=== PATIENT | male | born 1985 | race Caucasian/White ===

== ENCOUNTER 2016-04-20 03:47 | Emergency (ER) | payer OTHER ==
[2016-04-20] MEDS ORDERED: NORCO, ANEXSIA 5/325MG TABLET (HYDROcodone/ACETAMINOPHEN) As Ordered ONE (05:28)
--- NOTE | 2016-04-20 05:39 | EDDOCDS ---
Nurse's Notes [facility] Name: Craig Triana Age: 30 yrs Sex: Male : 1985 Arrival Date: 04/20/2016 Time: 03:47 Bed 8 Private MD: Diagnosis: Displaced fracture of base of fourth metacarpal bone, left hand Presentation: 04/20 03:56 Presenting complaint: Patient states: punched a sign around midnight last night and now ko2 hand is swollen and the swelling is going up the arm. Suicide/Homicide risk assessment- the patient denies having any suicidal and/or homicidal ideations and does not present with any other emotional, behavioral or mental health complaints. Status: Patient is not a mail service coordinator or dependent. Transition of care: patient was not received from another setting of care. 03:56 Acuity: LORAINE Level 3 ko2 03:56 Method Of Arrival: Walkin/Carried/Asstd ko2 04:03 Adult Sepsis Screening: The patient does not have new or worsening altered mentation. ko2 Patient's respiratory rate is less than 22. Systolic blood pressure is greater than 100. Patient has a qSOFA score of 0- Negative Sepsis Screen. Triage Assessment: 03:58 General: Appears in no apparent distress, Behavior is appropriate for age, cooperative. ko2 Pain: Location: left hand and left arm Pain currently is 10 out of 10 on a pain scale. HIV screening NA for this visit Offered previously. Neurological: Level of Consciousness is awake, alert. Respiratory: Airway is patent Respiratory effort is even, unlabored. Derm: Bruising that is bright red, dark purple, on left hand and left arm Swollen area noted on left arm and left hand. Musculoskeletal: Circulation, motion, and sensation intact Capillary refill < 3 seconds Range of motion intact in all extremities. Historical: - Allergies: No known drug Allergies; - Home Meds: 1. none - PMHx: none; - PSHx: none; - Social history: Smoking status: Patient states was never smoker of tobacco. No barriers to communication noted, The patient speaks fluent Slovak, Speaks appropriately for age. - Family history: Not pertinent. - : The pt / caregiver states he / she is not on anticoagulants. Home medication list is obtained from the patient. - Exposure Risk Screening:: None identified. Screenin:03 Screening information is obtained from the patient. Fall risk: No risks identified. ko2 Assistance ADL's: requires no assistance with activities of daily living. Abuse/DV Screen: The patient / caregiver reports he/she is: not in a situation that causes fear, pain or injury. Nutritional screening: No deficits noted. Advance Directives: Currently, there is no health care proxy. There is no active DNR order. There is no living will. There is no Power of Heading Maker. home support is adequate. Assessment: 05:36 General: Appears in no apparent distress, Behavior is cooperative. Pain: Location: left ld5 arm Pain currently is 6 out of 10 on a pain scale. Neurological: Level of Consciousness is awake, alert. Respiratory: Airway is patent Respiratory effort is even, unlabored. Musculoskeletal: Range of motion limited in left wrist. Vital Signs: 03:59 BP 140 / 75; Pulse 97; Resp 16; Temp 98.3(TE); Pulse Ox 95% ; Weight 97.52 kg; Height 5 ko2 ft. 9 in. (175.26 cm); Pain 10/10; 03:59 Body Mass Index 31.75 (97.52 kg, 175.26 cm) ko2 Vitals: 03:59 Log In Time: April 20, 2016 at 03:47. ko2 ED Course: 03:48 Patient visited by Alem Castillo. gjb 03:48 Patient moved to Waiting gjb 03:57 Triage Initiated ko2 04:05 Patient moved to Radiology freddy 04:20 Patient moved to Waiting freddy 04:26 [facility] Payment Agreement was scanned into [employer] and attached to record. pm4 04:29 Patient visited by Rodolfo Matamoros Reg. pm4 05:00 Assist provider with fracture care of left arm Fracture is closed. Circulation, motor ld5 and sensation is intact. Set up for procedure. Immoblized with Ortho Glass splint Performed by Irineo Flores DO Post immobilization, circulation, motor and sensation remain intact. Patient tolerated well. 05:04 Patient moved to 8 ko2 05:05 Irineo Flores DO is Attending Physician. cs11 05:05 Patient visited by Irineo Flores DO. cs11 05:26 Javier Au is Referral Physician. cs11 05:36 The patient / caregiver is instructed regarding the plan of care and ED course. Patient ld5 has correct armband on for positive identification. 05:36 No IV's were initiated during this patient's visit. ld5 05:38 Patient visited by Mackenzie Quan,MICHELLE. ld5 Administered Medications: 05:35 Drug: HYDROcodone-acetaminophen 1 tabs [hydrocodone 5 mg-acetaminophen 325 mg tablet (1 ld5 tabs)] Route: PO; 05:35 Follow up: Response: Confirmed pt not driving.; Pt left department before re-evaluation ld5 is appropriate Order Results: There are currently no results for this order. Outcome: 05:26 Discharge ordered by Provider. cs11 05:38 Discharge Assessment: Patient awake, alert and oriented x 3. No cognitive and/or ld5 functional deficits noted. Patient verbalized understanding of disposition instructions. patient administered narcotics - yes. Pt provided with safe discharge. The following High Risk Discharge criteria are identified: None. Discharged to home ambulatory, with significant other. Condition: stable. Discharge instructions given to patient, significant other, Instructed on discharge instructions, follow up and referral plans. medication usage, no driving heavy equipment, Demonstrated understanding of instructions, medications, Pt was receptive of discharge instructions/ teaching. Prescriptions given X 1. No special radiology studies were completed. Property :Personal belongings accompany Pt. 05:38 Patient left the ED. ld5 Signatures: Heriberto Martell Laura,RN RN lew5 Irineo Flores DO DO cs11 Tiffany Mcdonough,RN RN mark2 Alem Castillo Paul, Reg Reg pm4 MTDD
--- NOTE | 2016-04-20 05:39 | EDDOCDS ---
Physician Documentation [facility] Name: Craig Triana Age: 30 yrs Sex: Male : 1985 Arrival Date: 04/20/2016 Time: 03:47 Bed 8 Private MD: Disposition: 04/20/16 05:26 Discharged to Home/Self Care. Impression: Displaced fracture of base of fourth metacarpal bone, left hand. - Condition is Stable. - Prescriptions for [place] 5- 325 mg Oral Tablet - take 1 tablet by ORAL route every 6 hours As needed MDD: 4 tabs; 20 tablet. - Medication Reconciliation, Local Pharmacy Hours form. - Follow up: Javier Au; When: Call to arrange an appointment; Reason: Recheck today's complaints. - Problem is new. - Symptoms have improved. Historical: - Allergies: No known drug Allergies; - Home Meds: 1. none - PMHx: none; - PSHx: none; - Social history: Smoking status: Patient states was never smoker of tobacco. No barriers to communication noted, The patient speaks fluent Slovak, Speaks appropriately for age. - Family history: Not pertinent. - : The pt / caregiver states he / she is not on anticoagulants. Home medication list is obtained from the patient. - Exposure Risk Screening:: None identified. Vital Signs: 04/20 03:59 BP 140 / 75; Pulse 97; Resp 16; Temp 98.3(TE); Pulse Ox 95% ; Weight 97.52 kg / 214.99 ko2 lbs; Height 5 ft. 9 in. (175.26 cm); Pain 10/10; 03:59 Body Mass Index 31.75 (97.52 kg, 175.26 cm) ko2 Procedures: 05:28 Fracture care/splinting: (Stabilizing Care) Splint applied to left hand using cs11 Orthoglass splint, Reverse Sugar Tong Splint. applied by myself. Patient tolerated well. MDM: 04:04 Hand, Complete Ordered. EDMS 04:26 [facility] Payment Agreement was scanned into [employer] and attached to record. pm4 05:15 Financial registration complete. pm4 05:28 HYDROcodone-acetaminophen 5 mg-325 mg 1 tabs PO once ordered. cs11 Administered Medications: 05:35 Drug: HYDROcodone-acetaminophen 1 tabs [hydrocodone 5 mg-acetaminophen 325 mg tablet (1 ld5 tabs)] Route: PO; 05:35 Follow up: Response: Confirmed pt not driving.; Pt left department before re-evaluation ld5 is appropriate Signatures: Dispatcher [employer] Mackenzie Street RN RN ld5 Irineo Flores, DO DO cs11 Tiffany Mcdonough RN RN ko2 Rodolfo Matamoros, Reg Reg pm4 The chart was reviewed and I authenticate all verbal orders and agree with the evaluation and treatment provided.Corrections: (The following items were deleted from the chart) 04:22 04:04 Forearm (Radius/Ulna)+XR ordered. EDMS EDMS Attachments: 04:26 [facility] Payment Agreement pm4 MTDD
--- NOTE | 2016-04-20 07:56 | REP ---
Clinical: Trauma. Technique: AP, lateral, bilateral oblique views of the left hand. Comparison: 10/12/2014. Findings: There is an oblique minimally displaced fracture along the proximal metacarpal bone. Old healed boxers fracture of the fifth metacarpal bone noted. Impression: Acute oblique minimally displaced fracture at the fourth metacarpal bone. Signed by Anthony Lewis MD 04/20/2016 07:47 A
--- NOTE | 2016-04-22 06:40 | EDDOCDS ---
Nurse's Notes [facility] Name: Craig Triana Age: 30 yrs Sex: Male : 1985 Arrival Date: 04/20/2016 Time: 03:47 Bed 8 Private MD: Diagnosis: Displaced fracture of base of fourth metacarpal bone, left hand Presentation: 04/20 03:56 Presenting complaint: Patient states: punched a sign around midnight last night and now ko2 hand is swollen and the swelling is going up the arm. Suicide/Homicide risk assessment- the patient denies having any suicidal and/or homicidal ideations and does not present with any other emotional, behavioral or mental health complaints. Status: Patient is not a social services director or dependent. Transition of care: patient was not received from another setting of care. 03:56 Acuity: LORAINE Level 3 ko2 03:56 Method Of Arrival: Walkin/Carried/Asstd ko2 04:03 Adult Sepsis Screening: The patient does not have new or worsening altered mentation. ko2 Patient's respiratory rate is less than 22. Systolic blood pressure is greater than 100. Patient has a qSOFA score of 0- Negative Sepsis Screen. Triage Assessment: 03:58 General: Appears in no apparent distress, Behavior is appropriate for age, cooperative. ko2 Pain: Location: left hand and left arm Pain currently is 10 out of 10 on a pain scale. HIV screening NA for this visit Offered previously. Neurological: Level of Consciousness is awake, alert. Respiratory: Airway is patent Respiratory effort is even, unlabored. Derm: Bruising that is bright red, dark purple, on left hand and left arm Swollen area noted on left arm and left hand. Musculoskeletal: Circulation, motion, and sensation intact Capillary refill < 3 seconds Range of motion intact in all extremities. Historical: - Allergies: No known drug Allergies; - Home Meds: 1. none - PMHx: none; - PSHx: none; - Social history: Smoking status: Patient states was never smoker of tobacco. No barriers to communication noted, The patient speaks fluent Kinyarwanda, Speaks appropriately for age. - Family history: Not pertinent. - : The pt / caregiver states he / she is not on anticoagulants. Home medication list is obtained from the patient. - Exposure Risk Screening:: None identified. Screenin:03 Screening information is obtained from the patient. Fall risk: No risks identified. ko2 Assistance ADL's: requires no assistance with activities of daily living. Abuse/DV Screen: The patient / caregiver reports he/she is: not in a situation that causes fear, pain or injury. Nutritional screening: No deficits noted. Advance Directives: Currently, there is no health care proxy. There is no active DNR order. There is no living will. There is no Power of Intern Architect. home support is adequate. Assessment: 05:36 General: Appears in no apparent distress, Behavior is cooperative. Pain: Location: left ld5 arm Pain currently is 6 out of 10 on a pain scale. Neurological: Level of Consciousness is awake, alert. Respiratory: Airway is patent Respiratory effort is even, unlabored. Musculoskeletal: Range of motion limited in left wrist. Vital Signs: 03:59 BP 140 / 75; Pulse 97; Resp 16; Temp 98.3(TE); Pulse Ox 95% ; Weight 97.52 kg; Height 5 ko2 ft. 9 in. (175.26 cm); Pain 10/10; 03:59 Body Mass Index 31.75 (97.52 kg, 175.26 cm) ko2 Vitals: 03:59 Log In Time: April 20, 2016 at 03:47. ko2 ED Course: 03:48 Patient visited by Alem Castillo. gjb 03:48 Patient moved to Waiting gjb 03:57 Triage Initiated ko2 04:05 Patient moved to Radiology freddy 04:20 Patient moved to Waiting freddy 04:26 [facility] Payment Agreement was scanned into [employer] and attached to record. pm4 04:29 Patient visited by Rodolfo Matamoros Reg. pm4 05:00 Assist provider with fracture care of left arm Fracture is closed. Circulation, motor ld5 and sensation is intact. Set up for procedure. Immoblized with Ortho Glass splint Performed by Irineo Flores DO Post immobilization, circulation, motor and sensation remain intact. Patient tolerated well. 05:04 Patient moved to 8 ko2 05:05 Irineo Flores DO is Attending Physician. cs11 05:05 Patient visited by Irineo Flores DO. cs11 05:26 Javier Au is Referral Physician. cs11 05:36 The patient / caregiver is instructed regarding the plan of care and ED course. Patient ld5 has correct armband on for positive identification. 05:36 No IV's were initiated during this patient's visit. ld5 05:38 Patient visited by Mackenzie Quan RN. ld5 08:18 Hand, Complete Returned. EDMS 15:31 T-Sheet-- Draft Copy was scanned into [employer] and attached to record. gb Administered Medications: 05:35 Drug: HYDROcodone-acetaminophen 1 tabs [hydrocodone 5 mg-acetaminophen 325 mg tablet (1 ld5 tabs)] Route: PO; 05:35 Follow up: Response: Confirmed pt not driving.; Pt left department before re-evaluation ld5 is appropriate Order Results: Radiology Order: Hand, Complete Test: Hand, Complete REASON FOR EXAMINATION: Trauma; Clinical: Trauma.; ; Technique: AP, lateral, bilateral oblique views of the left hand.; ; Comparison: 10/12/2014.; ; Findings:; There is an oblique minimally displaced fracture along the proximal metacarpal; bone. Old healed boxers fracture of the fifth metacarpal bone noted.; ; Impression: Acute oblique minimally displaced fracture at the fourth metacarpal; bone.; ; ; Signed by; Anthony Lewis MD 04/20/2016 07:47 A; Outcome: 05:26 Discharge ordered by Provider. cs11 05:38 Discharge Assessment: Patient awake, alert and oriented x 3. No cognitive and/or ld5 functional deficits noted. Patient verbalized understanding of disposition instructions. patient administered narcotics - yes. Pt provided with safe discharge. The following High Risk Discharge criteria are identified: None. Discharged to home ambulatory, with significant other. Condition: stable. Discharge instructions given to patient, significant other, Instructed on discharge instructions, follow up and referral plans. medication usage, no driving heavy equipment, Demonstrated understanding of instructions, medications, Pt was receptive of discharge instructions/ teaching. Prescriptions given X 1. No special radiology studies were completed. Property :Personal belongings accompany Pt. 05:38 Patient left the ED. ld5 Signatures: [facility] Heriberto Martell Gloria, Reg Reg gb Mackenzie Quan,RN RN lew5 Irineo Flores, DO cs11 Tiffany Mcdonough RN RN ko2 Alem Castillo Paul, Reg Reg pm4 Chart Complete MTDD
--- NOTE | 2016-04-22 06:40 | EDDOCDS ---
Physician Documentation [facility] Name: Craig Triana Age: 30 yrs Sex: Male : 1985 Arrival Date: 04/20/2016 Time: 03:47 Bed 8 Private MD: Disposition: 04/20/16 05:26 Discharged to Home/Self Care. Impression: Displaced fracture of base of fourth metacarpal bone, left hand. - Condition is Stable. - Prescriptions for [place] 5- 325 mg Oral Tablet - take 1 tablet by ORAL route every 6 hours As needed MDD: 4 tabs; 20 tablet. - Medication Reconciliation, Local Pharmacy Hours form. - Follow up: Javier Au; When: Call to arrange an appointment; Reason: Recheck today's complaints. - Problem is new. - Symptoms have improved. Historical: - Allergies: No known drug Allergies; - Home Meds: 1. none - PMHx: none; - PSHx: none; - Social history: Smoking status: Patient states was never smoker of tobacco. No barriers to communication noted, The patient speaks fluent Yi, Speaks appropriately for age. - Family history: Not pertinent. - : The pt / caregiver states he / she is not on anticoagulants. Home medication list is obtained from the patient. - Exposure Risk Screening:: None identified. Vital Signs: 04/20 03:59 BP 140 / 75; Pulse 97; Resp 16; Temp 98.3(TE); Pulse Ox 95% ; Weight 97.52 kg / 214.99 ko2 lbs; Height 5 ft. 9 in. (175.26 cm); Pain 10/10; 03:59 Body Mass Index 31.75 (97.52 kg, 175.26 cm) ko2 Procedures: 05:28 Fracture care/splinting: (Stabilizing Care) Splint applied to left hand using cs11 Orthoglass splint, Reverse Sugar Tong Splint. applied by myself. Patient tolerated well. MDM: 04:04 Hand, Complete Ordered. EDMS 04:26 [facility] Payment Agreement was scanned into [employer] and attached to record. pm4 05:15 Financial registration complete. pm4 05:28 HYDROcodone-acetaminophen 5 mg-325 mg 1 tabs PO once ordered. cs11 15:31 T-Sheet-- Draft Copy was scanned into [employer] and attached to record. gb Administered Medications: 05:35 Drug: HYDROcodone-acetaminophen 1 tabs [hydrocodone 5 mg-acetaminophen 325 mg tablet (1 ld5 tabs)] Route: PO; 05:35 Follow up: Response: Confirmed pt not driving.; Pt left department before re-evaluation ld5 is appropriate Signatures: Dispatcher [employer] EDMS Danae Steve, Reg Reg gb Mackenzie Quan RN RN ld5 Irineo Flores DO DO cs11 Tiffany Mcdonough RN RN ko2 Rodolfo Matamoros, Reg Reg pm4 The chart was reviewed and I authenticate all verbal orders and agree with the evaluation and treatment provided.Corrections: (The following items were deleted from the chart) 04:22 04:04 Forearm (Radius/Ulna)+XR ordered. EDMS EDMS Attachments: 04:26 [facility] Payment Agreement pm4 15:31 T-Sheet-- Draft Copy gb Chart Complete MTDD
--- NOTE | 2016-04-22 06:40 | EDDOCDS ---
Physician Documentation [facility] Name: Craig Triana Age: 30 yrs Sex: Male : 1985 Arrival Date: 04/20/2016 Time: 03:47 Bed 8 Private MD: Disposition: 04/20/16 05:26 Discharged to Home/Self Care. Impression: Displaced fracture of base of fourth metacarpal bone, left hand. - Condition is Stable. - Prescriptions for [place] 5- 325 mg Oral Tablet - take 1 tablet by ORAL route every 6 hours As needed MDD: 4 tabs; 20 tablet. - Medication Reconciliation, Local Pharmacy Hours form. - Follow up: Javier Au; When: Call to arrange an appointment; Reason: Recheck today's complaints. - Problem is new. - Symptoms have improved. Historical: - Allergies: No known drug Allergies; - Home Meds: 1. none - PMHx: none; - PSHx: none; - Social history: Smoking status: Patient states was never smoker of tobacco. No barriers to communication noted, The patient speaks fluent Albanian, Speaks appropriately for age. - Family history: Not pertinent. - : The pt / caregiver states he / she is not on anticoagulants. Home medication list is obtained from the patient. - Exposure Risk Screening:: None identified. Vital Signs: 04/20 03:59 BP 140 / 75; Pulse 97; Resp 16; Temp 98.3(TE); Pulse Ox 95% ; Weight 97.52 kg / 214.99 ko2 lbs; Height 5 ft. 9 in. (175.26 cm); Pain 10/10; 03:59 Body Mass Index 31.75 (97.52 kg, 175.26 cm) ko2 Procedures: 05:28 Fracture care/splinting: (Stabilizing Care) Splint applied to left hand using cs11 Orthoglass splint, Reverse Sugar Tong Splint. applied by myself. Patient tolerated well. MDM: 04:04 Hand, Complete Ordered. EDMS 04:26 [facility] Payment Agreement was scanned into [employer] and attached to record. pm4 05:15 Financial registration complete. pm4 05:28 HYDROcodone-acetaminophen 5 mg-325 mg 1 tabs PO once ordered. cs11 15:31 T-Sheet-- Draft Copy was scanned into [employer] and attached to record. gb Administered Medications: 05:35 Drug: HYDROcodone-acetaminophen 1 tabs [hydrocodone 5 mg-acetaminophen 325 mg tablet (1 ld5 tabs)] Route: PO; 05:35 Follow up: Response: Confirmed pt not driving.; Pt left department before re-evaluation ld5 is appropriate Signatures: Dispatcher [employer] EDMS Danae Steve, Reg Reg gb Mackenzie Quan RN RN ld5 Irineo Flores DO DO cs11 Tiffany Mcdonough RN RN ko2 Rodolfo Matamoros, Reg Reg pm4 The chart was reviewed and I authenticate all verbal orders and agree with the evaluation and treatment provided.Corrections: (The following items were deleted from the chart) 04:22 04:04 Forearm (Radius/Ulna)+XR ordered. EDMS EDMS Attachments: 04:26 [facility] Payment Agreement pm4 15:31 T-Sheet-- Draft Copy gb Chart Complete MTDD
== END 2016-04-20 05:38 | disposition home or self-care (01) ==
LOC: M ED 03:47
DX: S62.309A Unspecified fracture of unspecified metacarpal bone, initial encounter for closed fracture (principal); W22.8XXA Striking against or struck by other objects, initial encounter; Y92.410 Unspecified street and highway as the place of occurrence of the external cause; Y93.9 Activity, unspecified; Y99.9 Unspecified external cause status

== ENCOUNTER 2016-09-14 22:45 | Emergency (ER) | payer OTHER ==
[~2016-09-14] VITALS: Ht 175.3 cm; Wt 98.1 kg
[2016-09-15] MEDS ORDERED: BACT400T PO (04:53)
--- NOTE | 2016-09-15 04:54 | REP ---
Clinical: Swelling and pain . Technique: AP, lateral, bilateral oblique and sunrise views right knee. Findings: Anterior and prepatellar soft tissue swelling is suggested. The osseous structures and joint spaces are intact and normal. There is no evidence for acute fracture or dislocation. No joint effusion is appreciated. Surrounding soft tissues are unremarkable. No subcutaneous emphysema or radiodense foreign body. Impression: Anterior swelling. No acute fracture or dislocation. Signed by Anthony Lewis MD 09/15/2016 04:45 A
[2016-09-15 05:23] VITALS: BP 130/82
== END 2016-09-15 05:24 | disposition home or self-care (01) ==
LOC: M ED 22:45
DX: L03.115 Cellulitis of right lower limb (principal)

== ENCOUNTER → 2018-02-04 | Outpatient (CLI) | payer OTHER | LOC: M LRY 17:47 | DX: S62.306A Unspecified fracture of fifth metacarpal bone, right hand, initial encounter for closed fracture (principal); X58.XXXA Exposure to other specified factors, initial encounter; Y92.9 Unspecified place or not applicable; Y93.9 Activity, unspecified; Y99.9 Unspecified external cause status | CPT/HCPCS: 73130 ==

== ENCOUNTER → 2018-03-22 | Outpatient (REF) | payer OTHER ==
[~2018-03-22] MED LIST: BACT400T PO
[2018-03-22 17:43] LABS: CHLAMYDIA DNA AMPLIFICATION NEGATIVE (NEGATIVE); GC DNA AMPLIFICATION NEGATIVE (NEGATIVE)
[2018-03-23 11:15] LABS: HEPATITIS B SURFACE ANTIGEN NEGATIVE (NEGATIVE); HEPATITIS C VIRUS ABY INDEX 0.1 INDEX (<0.8); HIV 1&2 SCREEN CENTAUR NEGATIVE (NEGATIVE)
== END ==
LOC: M SFHCPLAZ 14:00
DX: Z72.51 High risk heterosexual behavior (principal)

== ENCOUNTER → 2020-03-27 | Outpatient (REF) | payer OTHER ==
[2020-03-28 00:36] LABS: CHLAMYDIA DNA AMPLIFICATION NEGATIVE (NEGATIVE); GC DNA AMPLIFICATION NEGATIVE (NEGATIVE)
== END ==
LOC: M LAB REF 17:40
PROVIDERS: ATTEND Physician Assistant
DX: Z11.3 Encounter for screening for infections with a predominantly sexual mode of transmission (principal)

== ENCOUNTER 2020-10-27 07:48 | Emergency (ER) | payer OTHER ==
[~2020-10-27] VITALS: Ht 177.8 cm; Wt 94.6 kg
[2020-10-27] MEDS ORDERED: medical marijuana (08:05)
--- NOTE | 2020-10-27 10:29 | REP ---
INDICATION: trauma COMPARISON: None. TECHNIQUE: Axial noncontrast images from the skull base to the thoracic inlet with coronal and sagittal reformations. This CT examination was performed using the following dose reduction techniques: Automated exposure control, adjustment of mA and/or kv according to the patient's size, and use of iterative reconstruction technique. FINDINGS: The naso, breanna and hypopharynx, larynx and subglottic spaces are normal in appearance. Airways patent and midline. The salivary and thyroid glands are normal in size and density. Few scattered small lymph nodes are present in the internal jugular chains, posterior triangles, submandibular and submental areas. The lung apices are clear. The visualized sinuses are clear. Osseous structures are intact and without acute fracture/compression injury or subluxation. Mild focal degenerative changes at C5-6 includes marginal osteophytes and minimal disc space narrowing-6. IMPRESSION: No significant acute process or trauma/injury appreciated. <Electronically signed by Anthony Lewis > 10/27/20 [id number]
--- NOTE | 2020-10-27 10:29 | REP ---
INDICATION: trauma COMPARISON: None. TECHNIQUE: Axial noncontrast images from the skull base to the vertex with coronal reformations. This CT examination was performed using the following dose reduction techniques: Automated exposure control, adjustment of mA and/or kv according to the patient's size, and use of iterative reconstruction technique. FINDINGS: The ventricles, sulci, and cisterns are normal in position and appearance. Henry-white differentiation is maintained. No acute intracranial hemorrhage, mass/mass effect, pathology or trauma/injury. No evidence for acute infarction. No extra-axial fluid collection. Calvarium is intact. Paranasal sinuses and mastoid air cells are clear. IMPRESSION: Normal noncontrast head CT. No evidence for acute intracranial pathology or trauma/injury. <Electronically signed by Anthony Lewis > 10/27/20 [id number]
--- OUTSIDE RECORDS SUMMARY | 2020-10-27 10:51 | CCD ---
Author Author [facility] Organization [facility] Address Unknown Phone Unavailable Support Name Relationship Address Phone Joie Sheridan Next Of Kin Unknown Unavailable UN Next Of Kin Unknown Unavailable SEEJANETTE Next Of Kin [address] [place] [address] L, JOIE Next Of Kin [address] [place] [address] Petr Rico MD Next Of Kin [address] [place] [address] CONTACT, NO Next Of Kin Unknown JOIE CHASE Next Of Kin [address] [place] [address] TIMELESS Next Of Kin [address] [place] [address] SEEYONI Next Of Kin [address] [place] [address] UE Next Of Kin Unknown Unavailable ELIE PATEL CORRECTIONAL Next Of Kin [address] [place] [address] L, JOIE ECON [address] [place] [address] Unavailable Joie Rincon ECON [address] [place] [address] [phone] Rafitaie, Joie [address] [place] [address] [phone] Care Team Providers Care Plc Engineer Name Role Phone Matthieu Rico MD Unavailable Unavailable Matthieu Rico MD Unavailable Unavailable Matthieu Rico MD Unavailable Unavailable Matthieu Rico MD Unavailable Unavailable Matthieu Rico MD Unavailable Unavailable Matthieu Rico MD Unavailable Unavailable Matthieu Rico MD Unavailable Unavailable Matthieu Rico MD Unavailable Unavailable Matthieu Rico MD Unavailable Unavailable Matthieu Rico MD Unavailable Unavailable Matthieu Rico MD Unavailable Unavailable Matthieu Rico MD Unavailable Unavailable Matthieu Rico MD Unavailable Unavailable Matthieu Rico MD Unavailable Unavailable Matthieu Rico MD Unavailable Unavailable Matthieu Rico MD Unavailable Unavailable Matthieu Rico MD Unavailable Unavailable Matthieu Rico MD Unavailable Unavailable Matthieu Rico MD Unavailable Unavailable Matthieu Rico MD Unavailable Unavailable Matthieu Rico MD Unavailable Unavailable Matthieu Rico MD Unavailable Unavailable Matthieu Rico MD Unavailable Unavailable Matthieu Rico MD Unavailable Unavailable Matthieu Rico MD Unavailable Unavailable Mattheiu Rico MD Unavailable Unavailable Matthieu Rico MD Unavailable Unavailable Matthieu Rico MD Unavailable Unavailable Matthieu Rico MD Unavailable Unavailable Matthieu Rico MD Unavailable Unavailable Matthieu Rico MD Unavailable Unavailable Matthieu Rico MD Unavailable Unavailable Matthieu Rico MD Unavailable Unavailable Matthieu Rico MD Unavailable Unavailable Matthieu Rico MD Unavailable Unavailable Matthieu Rico MD Unavailable Unavailable Matthieu Rico MD Unavailable Unavailable Matthieu Rico MD Unavailable Unavailable Matthieu Rico MD Unavailable Unavailable Matthieu Rico MD Unavailable Unavailable Matthieu Rico MD Unavailable Unavailable Matthieu Rico MD Unavailable Unavailable Matthieu Rico MD Unavailable Unavailable Matthieu Rico MD Unavailable Unavailable Matthieu Rico MD Unavailable Unavailable Matthieu Rico MD Unavailable Unavailable Matthieu Rico MD Unavailable Unavailable Matthieu Rico MD Unavailable Unavailable Matthieu Rico MD Unavailable Unavailable Matthieu Rico MD Unavailable Unavailable Matthieu Rico MD Unavailable Unavailable Matthieu Rico MD Unavailable Unavailable Matthieu Rico MD Unavailable Unavailable Matthieu Rico MD Unavailable Unavailable Matthieu Rico MD Unavailable Unavailable Matthieu Rico MD Unavailable Unavailable Matthieu Rico MD Unavailable Unavailable Matthieu Rico MD Unavailable Unavailable Matthieu Rico MD Unavailable Unavailable Matthieu Rico MD Unavailable Unavailable Matthieu Rico MD Unavailable Unavailable Matthieu Rico MD Unavailable Unavailable Matthieu Rico MD Unavailable Unavailable Matthieu Rico MD Unavailable Unavailable Matthieu Rico MD Unavailable Unavailable Matthieu Rico MD Unavailable Unavailable Matthieu Rico MD Unavailable Unavailable Matthieu Rico MD Unavailable Unavailable Matthieu Rico MD Unavailable Unavailable Matthieu Rico MD Unavailable Unavailable Matthieu Rico MD Unavailable Unavailable Matthieu Rico MD Unavailable Unavailable Matthieu Rico MD Unavailable Unavailable Matthieu Rico MD Unavailable Unavailable Matthieu Rico MD Unavailable Unavailable Matthieu Rico MD Unavailable Unavailable Matthieu Rico MD Unavailable Unavailable Matthieu Rico MD Unavailable Unavailable Matthieu Rico MD Unavailable Unavailable Matthieu Rico MD Unavailable Unavailable Matthieu Rico MD Unavailable Unavailable Matthieu Rico MD Unavailable Unavailable Matthieu Rico MD Unavailable Unavailable Matthieu Rico MD Unavailable Unavailable Matthieu Rico MD Unavailable Unavailable Matthieu Rico MD Unavailable Unavailable Matthieu Rico MD Unavailable Unavailable Matthieu Rico MD Unavailable Unavailable Matthieu Rico MD Unavailable Unavailable Matthieu Rico MD Unavailable Unavailable Matthieu Rico MD Unavailable Unavailable Matthieu Rico MD Unavailable Unavailable Re-disclosure Warning The records that you are about to access may contain information from federally-assisted alcohol or drug abuse programs. If such information is present, then the following federally mandated warning applies: This information has been disclosed to you from records protected by federal confidentiality rules (42 CFR part 2). The federal rules prohibit you from making any further disclosure of this information unless further disclosure is expressly permitted by the written consent of the person to whom it pertains or as otherwise permitted by 42 CFR part 2. A general authorization for the release of medical or other information is NOT sufficient for this purpose. The Federal rules restrict any use of the information to criminally investigate or prosecute any alcohol or drug abuse patient.The records that you are about to access may contain highly sensitive health information, the redisclosure of which is protected by Article 27-F of the [facility] Public Health law. If you continue you may have access to information: Regarding HIV / AIDS; Provided by facilities licensed or operated by the [facility] Office of Mental Health; or Provided by the [facility] Office for People With Developmental Disabilities. If such information is present, then the following [facility] mandated warning applies: This information has been disclosed to you from confidential records which are protected by state law. State law prohibits you from making any further disclosure of this information without the specific written consent of the person to whom it pertains, or as otherwise permitted by law. Any unauthorized further disclosure in violation of state law may result in a fine or correction sentence or both. A general authorization for the release of medical or other information is NOT sufficient authorization for further disc losure. Allergies and Adverse Reactions Type Description Substance Reaction Status Data Source(s ) Allergy to substance Allergy to substance Allergy to substance [facility] ([facility]) Family History Family Member Name Family Member Gender Family Member Status Date o f Status Description Data Source(s) Unknown Male Problem [facility] ([facility] ) Encounters Encounter Providers Location Date Indications Data Source(s ) Petr Rico MD: [address] [place] [phone], Ph. Attender: Petr Rico MD [place] - [facility] Medical 03/04/2020 12:00:00 AM EST [facility] ([facility]) Medications No Information Insurance Providers Payer name Policy type / Coverage type Policy ID Covered green party ID Covered green party's relationship to soto Policy Soto Plan Information BS [place] [employer] Part B [id number] Self M [id number] BS [place] [employer] [place] B [id number] Self M [id number] BS [place] [employer] Part B [id number] Self M [id number] BS [place] [employer] Part B [id number] Self M [id number] BS [place] [employer] Part B [id number] Self M [id number] BS [place] [employer] Part B [id number] Self M [id number] JOSE I [id number] Self [id number] 500 JOSE I [id number] Self [id number] 500 SELF PAY [facility] Community Plan Commercial [id number] Self [id number] [facility] O [id number] S [id number] [facility] [id number] SP [id number] [facility] [id number] SP [id number] [facility] Community Plan Commercial [id number] Self [id number] [facility] Community Plan Commercial [id number] Self [id number] Formerly [facility] Plan Commercial [id number] Self [id number] [facility] Community Plan Commercial [id number] Self [id number] [facility] O [id number] S [id number] [facility] [id number] SP [id number] SELF PAY UNAVAILABLE SP [facility] [id number] SP [id number] [facility] [id number] D Managed Care [facility] P [id number] S [id number] ANSI-Commercial [id number] ANSI-Commercial [id number] ANSI-Commercial [id number] [facility] [id number] S [id number] Formerly [facility] Plan Medigap Part B [id number] Self [id number] [place] Medicaid/CHP/FHP Commercial [id number] Self [id number] ANSI-Commercial [id number] Problems, Conditions, and Diagnoses No Information Surgeries/Procedures No Information Results ID Date Data Source [id number] 05/05/2020 12:00:00 AM EST [facility] Name Value Range Interpretation Code Description Data Nerissa rce(s) Supporting Document(s) SARS-CoV2 Rapid Antigen Negative [facility] This lab was ordered by [facility] and reported by [facility]. ID Date Data Source [id number] 03/04/2020 08:32:00 AM EST [facility] Name Value Range Interpretation Code Description Data Nerissa rce(s) Supporting Document(s) SARS coronavirus 2 RdRp gene [Presence] in Respiratory specimen by ED with probe detection [facility] This lab was ordered by [facility] and reported by [facility]. ID Date Data Source [id number] 03/04/2020 08:22:00 AM EST [place] ([facility]) Name Value Range Interpretation Code Description Data Nerissa rce(s) Supporting Document(s) sars-cov-2 negative negative Sars-cov-2 [facility] ([facility]) Procedure Social History No Information
[2020-10-27 11:46] VITALS: BP 124/84
--- NOTE | 2020-10-27 12:15 | REP ---
INDICATION: trauma COMPARISON: None. TECHNIQUE: Axial noncontrast images through the facial bones to include the mandible with coronal and sagittal re-formations. This CT examination was performed using the following dose reduction techniques: Automated exposure control, adjustment of mA and/or kv according to the patient's size, and use of iterative reconstruction technique. FINDINGS: The osseous structures are intact and there is no evidence for fracture or dislocation. Specifically, the bilateral zygomatic arches, nasal bones, and mandible including bilateral temporomandibular joints appear normal and symmetric. The sinuses and mastoid air cells are all well aerated and clear without fluid level to suggest occult trauma. The bilateral orbits including the globes and intraconal contents appear symmetric and normal. The surrounding soft tissues are grossly unremarkable. IMPRESSION: Normal maxillofacial CT. No evidence for acute pathology or trauma/injury. <Electronically signed by Anthony Lewis > 10/27/20 [id number]
== END 2020-10-27 12:22 | disposition home or self-care (01) ==
LOC: M ED 07:48
DX: S13.4XXA Sprain of ligaments of cervical spine, initial encounter (principal); S06.0X0A Concussion without loss of consciousness, initial encounter; S00.10XA Contusion of unspecified eyelid and periocular area, initial encounter; M54.2 Cervicalgia; Y35.813A Legal intervention involving manhandling, suspect injured, initial encounter; Y92.9 Unspecified place or not applicable; Y93.9 Activity, unspecified; Y99.9 Unspecified external cause status

== ENCOUNTER → 2023-12-01 | Outpatient (REF) | payer OTHER ==
[~2023-12-01] MED LIST changes: +medical marijuana
== END ==
LOC: M LAB REF 16:16
PROVIDERS: ATTEND Internal Medicine
DX: Z13.89 Encounter for screening for other disorder (principal)

== ENCOUNTER 2024-05-17 05:45 | Emergency (ER) | payer OTHER ==
[~2024-05-17] VITALS: Ht 177.8 cm; Wt 83.0 kg
[2024-05-17 05:54] VITALS: BP 148/102; TEMP 97.9; O2SAT 96
[2024-05-17 07:08] LABS: AMPHETAMINES LEVEL URINE NEGATIVE (NEGATIVE); BARBITURATES URINE NEGATIVE (NEGATIVE); BENZODIAZEPINES URINE NEGATIVE (NEGATIVE); METHADONE URINE NEGATIVE (NEGATIVE); OPIATES URINE NEGATIVE (NEGATIVE); PHENCYCLIDINE URINE NEGATIVE (NEGATIVE)
[2024-05-17 07:09] LABS: CANNABINOIDS URINE POSITIVE (NEGATIVE); COCAINE METABOLITE URINE POSITIVE (NEGATIVE)
== END 2024-05-17 07:03 | disposition left against medical advice (07) ==
LOC: M ED 05:45
DX: R07.9 Chest pain, unspecified (principal); Z53.9 Procedure and treatment not carried out, unspecified reason

== ENCOUNTER → 2024-10-04 | Outpatient (CLI) | payer OTHER | LOC: M OUTALCOH 07:39 | PROVIDERS: ATTEND Psychiatry & Neurology Psychiatry | DX: F12.10 Cannabis abuse, uncomplicated (principal); F10.10 Alcohol abuse, uncomplicated ==

== ENCOUNTER 2024-11-01 15:23 | Outpatient (RCR) | payer OTHER | END 2024-11-03 | LOC: M OUTALCOH 15:23 | PROVIDERS: ATTEND Psychiatry & Neurology Psychiatry | DX: F12.10 Cannabis abuse, uncomplicated (principal); F10.10 Alcohol abuse, uncomplicated ==

== ENCOUNTER 2024-11-21 15:51 | Outpatient (RCR) | payer OTHER | END 2024-12-03 | LOC: M OUTALCOH 15:51 | PROVIDERS: ATTEND Psychiatry & Neurology Psychiatry | DX: F12.10 Cannabis abuse, uncomplicated (principal); F10.10 Alcohol abuse, uncomplicated ==

== ENCOUNTER 2024-12-23 10:54 | Outpatient (RCR) | payer OTHER | END 2025-01-03 | LOC: M OUTALCOH 10:54 | PROVIDERS: ATTEND Psychiatry & Neurology Psychiatry | DX: F12.10 Cannabis abuse, uncomplicated (principal); F10.10 Alcohol abuse, uncomplicated ==